=== PATIENT | female | born 1985 | race Hispanic/Latino ===

== ENCOUNTER 2018-06-21 11:25 | Inpatient (IN) | payer OTHER ==
[~2018-06-21] VITALS: Ht 167.6 cm; Wt 90.7 kg
--- NOTE | 2018-06-21 11:54 | ED PSYCHIATRIC COMPLAINT ---
History of Present Illness General Chief Complaint: Psychiatric Related Complaint Stated Complaint: ANXIETY Source: patient Exam Limitations: poor historian, physical impairment Vital Signs & Intake/Output Vital Signs & Intake/Output Vital Signs Date Time Temp Pulse Resp B/P B/P Pulse O2 O2 Flow FiO2 Mean Ox Delivery Rate 06/22 0814 98.1 74 18 111/67 99 Room Air 06/22 0635 98.3 76 18 100/48 98 Room Air 06/21 2152 98.0 83 16 96/56 98 Room Air 06/21 1819 98.7 89 16 104/50 98 Room Air 06/21 1448 98.8 69 16 122/70 98 Room Air 06/21 1409 Room Air ED Intake and Output 06/22 0000 06/21 1200 Intake Total Output Total Balance Patient 200 lb Weight Allergies Coded Allergies: No Known Allergies (06/21/18) Reconcile Medications No Known Home Medications Triage Note: 32B YEAR OLD FEMALE TO ER VIA MABULANCE FROM [facility] FOR ANXIETY ATTACK, PT STATES THAT SHE HAD SIMILAR EPISODE 1 YEAR AGO AND WAS SEEN AT [facility]. PT REQUESTING TO SPEAK WITH CRISIS, DENIES SI/HI/DRUGS/ETOG. PT STATES " IM JUST VERY OVERWHELMED Triage Nurses Notes Reviewed? yes Onset: Abrupt Duration: unknown duration Timing: unknown : No Patient currently breastfeeds: No HPI: 06/21/18 4 pm Patient with severe anxiety and depression. She does admit to occasional opiate use for her chronic back pain. She denies other complaints. She does smoke cigarettes. She is anxious and pacing and is acutely agitated in the ED (Kenton Callahan DO) Past History Travel History Traveled to [facility] past 21 day No Medical History Any Pertinent Medical History? 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 No (Kenton Callahan DO) Review of Systems Review of Systems Constitutional: Denies: fever. EENTM: Denies: visual changes. Respiratory: Denies: short of breath. Cardiovascular: Denies: chest pain. GI: Denies: abdominal pain. Genitourinary: Reports: no symptoms. Musculoskeletal: Reports: see HPI. Skin: Reports: no symptoms. Neurological/Psychological: Reports: depressed. Hematologic/Endocrine: Reports: no symptoms. Immunologic/Allergic: Reports: no symptoms. (Kenton Callahan DO) Physical Exam Physical Exam General Appearance: well developed/nourished, alert, awake, anxious, moderate distress Head: atraumatic, normal appearance Eyes: Bilateral: normal appearance, PERRL, EOMI. Ears, Nose, Throat: normal pharynx, normal ENT inspection Neck: normal inspection, supple, full range of motion Respiratory: normal breath sounds, chest non-tender, no respiratory distress Cardiovascular: regular rate/rhythm Gastrointestinal: non-tender Extremities: normal range of motion Neurological/Psychiatric: awake, agitated, alert, anxious Appearance/Memory/Insight: disheveled Behavoir/Eye Contact/Speech: compulsive, pacing Thoughts/Hallucinations: delusions SAD PERSONS SAD PERSONS Response Value Depression/Hopelessness? yes 2 Rational Thinking Loss? yes 2 Single//? yes 1 Social Support? has no support 1 Total 6 SAD PERSONS Done? yes (Kenton Callahan DO) Progress Differential Diagnosis: drug intoxication, drug overdose, drug withdrawal, depression Plan of Care: Orders Procedure Date/time Status Admit to inpatient psych 06/22 1155 Active Continuous Observation Monitor 06/21 1414 Active Current Medications Sig/May Start time Last Medication Dose Stop Time Status Admin Lorazepam 1 MG TID 06/21 2100 UNVr 06/22 (Ativan) 0830 Laboratory Tests 06/21/18 1228: Urine Opiates Screen < 100, Methadone Screen < 40, Barbiturate Screen < 60, Ur Phencyclidine Scrn < 6.00, Amphetamines Screen < 100, U Benzodiazepines Scrn > 800 H, Urine Cocaine Screen 64, Urine Cannabis Screen > 80.00 H, Urinalysis LIGHT H, Urine Color YEL, Urine Clarity CLEAR, Urine pH 6.0, Ur Specific [place] <= 1.005, Urine Protein NEG, Urine Ketones 15 H, Urine Nitrite NEG, Urine Bilirubin NEG, Urine Urobilinogen 0.2, Ur Leukocyte Esterase LARGE H, Ur Microscopic SEDIMENT EXAMINED, Urine RBC RARE, Urine WBC 5-10 H, Ur Epithelial Cells MANY H, Urine Bacteria RARE H, Urine Mucus RARE, Urine Hemoglobin TRACE- INTACT, Urine Glucose NEG, Urine Test NEGATIVE 06/21/18 1227: Anion Gap 9, Estimated GFR > 60, BUN/Creatinine Ratio 13.3, Glucose 108 H, Calcium 9.6, Total Bilirubin 0.9, AST 19, ALT 30, Alkaline Phosphatase 62, Total Protein 7.9, Albumin 4.5, Globulin 3.4, Albumin/Globulin Ratio 1.3, CBC w Diff NO MAN DIFF REQ, RBC 4.09 L, MCV 88.5, MCH 30.7, MCHC 34.7, RDW 14.2, MPV 9.6, Gran % 72.8, Lymphocytes % 21.1, Monocytes % 5.9, Eosinophils % 0, Basophils % 0.2, Absolute Granulocytes 7.9 H, Absolute Lymphocytes 2.3, Absolute Monocytes 0.6, Absolute Eosinophils 0, Absolute Basophils 0, Serum Alcohol < 10.0 (Kenton Callahan DO) Hand-Off Endorsed To: Kenton Ferguson MD Endorsed Time: 0700 Pending: consult (Александр Wang MD) Comments: 06/22/2018 7:17:40 AM patient signed out to me by Dr. 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 06/22/2018 11:59:01 AM patient will be admitted to inpatient psychiatry. (Phyllis WATSON,Kenton Wells) Departure Departure Disposition: STILL A PATIENT Condition: Stable Clinical Impression Primary Impression: Agitation Secondary Impressions: Depression Referrals: Keturah Wallis MD (PCP/Family) Departure Forms: Customer Survey General Discharge Information Prescriptions: Current Visit Scripts No Known Home Medications Comments The patient was given Ativan for the agitation. She is pending crisis evaluation. She will be signed out to Dr. Wang at 7 PM. (Kenton Callahan DO) No Known Home Medications Comments The patient was given Ativan for the agitation. She is pending crisis evaluation. She will be signed out to Dr. Wang at 7 PM. (Kenton Callahan DO)
[2018-06-21 12:49] LABS: ABSOLUTE BASOPHIL COUNT 0 /CUMM (0.0-0.2); ABSOLUTE EOSINOPHIL COUNT 0 /CUMM (0.0-0.7); ABSOLUTE GRANULOCYTE CT 7.9 /CUMM (1.4-6.5); ABSOLUTE LYMPH COUNT 2.3 /CUMM (1.2-3.4); ABSOLUTE MONOCYTE COUNT 0.6 /CUMM (0.10-0.60); BASOPHIL % 0.2 % (0.0-2.0); EOSINOPHIL % 0 % (0-5); GRANULOCYTE % 72.8 % (42.2-75.2); HEMATOCRIT 36.2 % (37-47); MEAN CORPUSCULAR HGB 30.7 PG (27.0-31.0); MEAN CORPUSCULAR HGB CONC 34.7 G/DL (33.0-37.0); MEAN CORPUSCULAR VOLUME 88.5 FL (81.0-99.0); MEAN PLATELET VOLUME 9.6 FL (7.4-10.4); PLATELET COUNT 346 /CUMM (130-400); RBC DISTRIBUTION WIDTH 14.2 % (11.5-14.5); RED BLOOD CELL CT 4.09 /CUMM (4.20-5.40); WHITE BLOOD CELL COUNT 10.8 /CUMM (4.8-10.8)
--- NOTE | 2018-06-21 15:59 | ED PSY CRISIS COLLATERAL NOTE ---
Collateral Note Collateral Note Family/Inform/Gaurav Contacts: Patient is a 32 year old unmarried female, who lives with her boyfriend whom she has known for more than 25 years. Male friend is Marc Recio who seems to be very concerned about patient's well -being, and has been a strong advocate for her, and has assisted with urging her to cooperate with staff. Patient has been working a pretty high stress job, with long hours for a number of years. She is inadequately compensated for this job per boyfriend and patient , and finances are tight. 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 Work has led to poor sleep and inadequate care of self, such as nutrition. Patient has had back problems as well, a herniated disc:L -4 and 5. Patient is opposed to any kind of medication, and has resisted taking any pain meds or gabepentin. Chayito has also not followed up with psychiatric treatment as recommended, following a trip to [facility] last year at approximately the same time of year. Presentation then was similar to today: extreme anxiety; confusion; difficulty with communication and organizing her thoughts; and appearing fearful and overwhelmed. Per boyfriend patient has serious mood swings and has numerous notebooks filled with thoughts which she calls "epiphanies" or "brain dumps". Patient did no want me to contact her mother, and patient said that she did not want to worry her, but wonders what "kind of genes do I have ?". Patient aware that has mental healthissues, but has resisted treatment or medication. Patient denies any drug or alcohol use ever. Marc, boyfriend, supports this statement. Boyfriend said that he would talk to her about being open to medication to enable patient to be properly evaluated. Patient was incoherent and extremely anxious when she was seen initially.
--- NOTE | 2018-06-21 16:45 | ED PSY CRISIS COLLATERAL NOTE ---
Collateral Note Collateral Note Family/Inform/Gaurav Contacts: Called friend, Belen, who essentially stated the same thing as her boyfriend, Marc. Patient has history of overworking and not getting sleep, along with having mood swings. Patient had an occurance that was similar to todays presentation one year ago. Patient has not followedup. Patient was sent to [facility] from [facility] aftere went there today, however they had no prior contact with patient, but sent here due to extreme anxiety.
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
[2018-06-22 14:52] VITALS: BP 106/51
[2018-06-22] MEDS ORDERED: NEURONTIN300 M1 PO (15:45)
[2018-06-22] MEDS ORDERED: MELOXICAM15 M1 PO (15:47)
[2018-06-22 20:04] VITALS: BP 133/65
[2018-06-23 07:49] VITALS: BP 108/53
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
--- NOTE | 2018-06-23 15:00 | CPS PROVIDER INIT ASMT PSYCH ---
Psychiatric Admission Foundry Worker Apprentice's Note Reviewed: Yes Patient Seen and Examined: Yes (Seen with medical student.) Identifying Information: 32 yo SHF admitted on 06/22/18 on a voluntary basis, referred by ER. Chief Complaint: Opal/paranoia. Reaction to Hospitalization: "It's relieving to take a break" but she is eager to get back to issues that need to be solved. History of Present Illness Onset of Illness: Similar episode 1 year ago, seen at [facility] ER, held overnight and released. Per crisis note, worsening anxiety x 2 months. Circumstances Leading to Admission: Having a lot of anxiety and panic attacks. Couldn't leave the house. Woke up Tuesday at 5 a.m. Couldn't even get dressed. Was anxious about talking with employer about her interest in a new position. Has financial problems and feels she isn't paid enough. Reports similar episode last year but it was worse that time. Chronic back pain from DDD. Reports she hasn't gone for MRI because owes $. Reports her thoughts have been scattered and all over the place. PI began on Tuesday. In ER, she found it to be loud with echos and she felt people were talking about her. Problem(s) Justifying Need for Admission: Opal. PI. Other HPI: Sleep: chronically inconsistent. Appetite: very low in the summer Weight: possibly a small weight gain related to travel. Energy: goes up and down. Gets some mood swings. Gets natural highs, "inspirations, enlightened," lasts for hours or days. Voodoo/spiritual but not hyper-shinto. Has lots of notebooks (?hypergraphia) of "brain dumps." Has had small spending sprees. Has debt but can't quantify. Denies promiscuity. Case and treatment plan discussed in team meeting. Staff reports that the patient denies SI. The day went well yesterday. Smiling this morning. Not paranoid now. Past Psychiatric History Past Diagnosis(es)- if any: Possibly bipolar disorder/depressed. Past Precipitating Factors- if any: Stress. - Include inpatient and outpatient treatment Treatment History: Seen at [facility] ER 08/06/17. Not in outpatient tx. History of Suicide Attempts or Gestures Denied. Substance Abuse History: Denies tobacco. Alcohol: a couple of glasses of wine on weekends and 1-2 weekdays/week. MJ "as needed," ~2-3x/day. No other drugs. Allergies: Coded Allergies: No Known Allergies (06/21/18) Home Med List: Gabapentin prn for back. Occ. nebulizer. - Include any medical condition(s) that may - impact the patient's recovery/remission Past Medical History: DDD + sciatica (left, now right also). Overweight. Past History Medical History Neurological: SCIATICA EENT: NONE Cardiovascular: NONE Respiratory: asthma Gastrointestinal: NONE Hepatic: NONE Renal: NONE Musculoskeletal: chronic back pain, disk herniation Psychiatric: anxiety, depression, psychosis, substance abuse Endocrine: NONE Blood Disorders: NONE Cancer(s): NONE SPORT INTERN/Reproductive: NONE History of MRSA: No History of VRE: No History of CDIFF: No Isolation History: Standard Surgical History Surgical History: none Psychiatric Family/Social Hx Family History Psychiatric Illness: Father: not formally diagnosed, no relationship with him. Substance Use: Father: alcoholic. Suicides: Denied. Social History Living Situation: Lives with of 3 years. Significant Relationships (family/friends): . Education: Associates degree from [employer]. 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 Legal: No arrests. Healthly Behaviors Screening Tobacco Screening Tobacco Use from ED Docu: Never used - If tobacco counseling indicated - the following topics are required. - #1 Recognizing dangerous situations. - #2 Coping Skills. - #3 Basic information about quitting. Status of Tobacco Cessation Counseling: Not Applicable Cessation Med Status Not Applicable Alcohol Screening - ETOH screen POS if BAL >=80 or Audit-C>= M4/F3 Audit-C Score from Diag Assess: 3 Blood Alcohol Level: Laboratory Tests 06/21 1227 Toxicology Serum Alcohol (<10 MG/DL) < 10.0 Alcohol Use Screening Results: Pos per Audit C &/or BAL - If ETOH counseling indicated - the following topics are required. - #1 Express concern about the patient's - drinking at unhealthy levels, include informing - of national norms for moderate drinking: - men <= 14 drinks/week, max 4 drinks/occasion - women <= 7 drinks/week, max 3 drinks/occasion - #2 Providing feedback, including linking alcohol to - negative physical effects (liver injury, hypertension) - negative emotional effects (relationship problems and - depression) - negative occupational consequences (reduced work - performance) - #3 Advising the patient to abstain from alcohol or - to drink below national norms for moderate drinking - (as listed above). Status of ETOH Use Counseling: #1, #2 AND #3 Completed. Metabolic Screening - Screen if on a Neuroleptic Medication - Metabolic screening should include: - Blood Pressure, BMI, Glucose or Hgb A1c, & a - Lipid profile from within the past 365 days. Metabolic Screening ([x]) Not Applicable, patient not on a neuroleptic. OR () Patient on a neuroleptic(s) . Enter below results for Hemoglobin A1C, and lipid panel if obtained during the last 365 days. BMI: 32.200 Blood Pressure: 108/53 Laboratory Results From [facility] (If applicable): Exam and Plan Mental Status Examination Ambulation Status: Gait WNL. Appearance: Mildly overweight HF dressed in sweatshirt and flannel PJ pants. Attitude towards examiner: Calm, polite and cooperative. Psychomotor activity: There is no psychomotor agitation/retardation. Behavior: Unremarkable. Quality of speech: Normal in volume, rate and tone. Affect: Calm and blunted to euthymic. Mood: Mood good. Sad maybe 1-2/10. Anxiety 0/10. Pain ~2/10, at left foot. Denies feeling hopeless, helpless, worthless or guilty. Suicidal Ideation: Denies active and passive SI. Homicidal Ideation: Denies HI. Hallucinations: Denies AH and VH. Paranoid/Delusional Material: Denies PI and magical witt. Difficulties with thought organization: None. Insight: Fair. Judgment: Was poor, now improved. Orientation: Ox3 except 06/23/10. Corrected year to 18 on prompting. Cognition: Grossly intact. Memory Function: Grossly intact. Estimate of intellectual functioning: Average. Assets/Strengths Patient Identified Assets/Strengths: Organizing. Doing puzzles. Translating Malay/Latvian. Impression/Plan Impression and Plan: The patient is here with recent opal and paranoia, now improving. Uses MJ and drinks some. - Include all active medical diagnosis that require tx DSM 5 Diagnosis(es): Bipolar I disorder, manic. Cannabis use disorder. R/o alcohol use disorder. - Initial Tx Plan for Active Psych & Medical Conditions Treatment Plan: The patient will be monitored on the unit for safety, opal and psychosis. Patient was advised to stop MJ and to reduce alcohol use to safer levels. Major risks/benefits of Tegretol were discussed with the patient, including risks of rash, drop in sodium and WBC and risk of rendering control pills, patches and injections ineffective for control. Patient was advised to avoid drugs, alcohol and while on Tegretol. Will start Tegretol 200 mg b.i.d. and check a level on Tuesday morning. Additional information is needed from collaterals, including BF. Anticipate once clinically stable, that the patient will be discharged to home and and be referred to an IOP. - Factors that would help patient function - in a less restrictive setting. Factors: Not manic. Not paranoid.
--- NOTE | 2018-06-23 16:29 | SOCIAL WORKER PROG NOTE PSYCH ---
Social Work Progress Note Progress Note I Chemo Campa ([facility] Digital Sales Assistant) met with Chayito today in her room. She was engaged and cooperative during the conversation. She mentioned that several stressors led her to be admitted to the inpatient psychiatric unit. She recently had neighbors move in which limited her privacy because the apartments are so close together. She feels overwhelmed by all the external stimuli at work and at home. She has attempted to use head headphones at work to help her concentrate but then other co workers told her that she was being antisocial.She desires to in the future move to [place] with her boyfriend to be with his daughter. She stated that she had trouble sleeping due to anxiety and sometimes shakes at night when anxious. 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 She described family members as being set in their ways and sometimes fight. She is open to having a family meeting with her boyfriend.Chayito expressed that her boyfriend is very supportive.
--- NOTE | 2018-06-23 17:52 | History & Physical ---
General Information and HPI MD Statement: I have seen and personally examined NARGIS LATIF and documented this H&P. The patient is a 32 year old F who presented with a patient stated chief complaint of "mood up-and-down and not sleeping well"]. Source of Information: patient, family, old records Exam Limitations: unable to give history History of Present Illness: 32-year-old female with history of anxiety, came to the emergency room via ambulance from [facility] with an anxious attack she said the same thing happened a year ago and was seen at . She came in with pressured speech , disorganized, tangential thoughts feels overwhelmed unable to function. She has been worse for the last week with increased anxiety and paranoia and racing thoughts. Allergies/Medications Allergies: Coded Allergies: No Known Allergies (06/21/18) Home Med list Gabapentin (Neurontin) 300 MG CAPSULE 1 CAP PO DAILY NEEDED PRN SCIATICA ( Reported) Meloxicam 15 MG TABLET 1 TAB PO DAILY PRN BACK PAIN (Reported) Compliance With Home Meds: UNKNOWN Past History Travel History Traveled to [facility] past 21 day No Medical History Neurological: SCIATICA EENT: NONE Cardiovascular: NONE Respiratory: asthma Gastrointestinal: NONE Hepatic: NONE Renal: NONE Musculoskeletal: chronic back pain, disk herniation Psychiatric: anxiety, depression, psychosis, substance abuse Endocrine: NONE Blood Disorders: NONE Cancer(s): NONE 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 Exam & Diagnostic Data Last 24 Hrs of Vital Signs/I&O Vital Signs Date Time Temp Pulse Resp B/P B/P Pulse O2 O2 Flow FiO2 Mean Ox Delivery Rate 06/23 749 97.9 75 108/53 06/22 2004 98.5 83 133/65 Intake & Output 06/23 1600 06/23 0800 06/23 0000 Intake Total Output Total Balance Patient 200 lb Weight Physical Exam General Appearance Alert, Oriented X3, Cooperative, No Acute Distress Skin No Rashes HEENT PERRLA, EOMI, Mucous Membr. moist/pink Neck Supple, No JVD, No thryomegaly, +2 Carotid Pulse wo Bruit, No LAD Lymphatic Axillary nl, Cervical nl Cardiovascular Regular Rate, No Murmurs Lungs Clear to Auscultation, Normal Air Movement Abdomen Soft, No Tenderness, No Hepatospenomegaly Neurological Exam Findings: Normal Gait, Normal Speech, Strength at 5/5 X4 Ext, Normal Tone, Sensation Intact, Cranial Nerves 3-12 NL, Reflexes 2+ Cranial Nerves II through XII: intact Extremities No Edema, Normal Pulses Vascular Normal Pulses, Pulses Symmetrical Last 24 Hrs of Labs/[place]: Laboratory Tests 06/21/18 1228: Urine Opiates Screen < 100, Methadone Screen < 40, Barbiturate Screen < 60, Ur Phencyclidine Scrn < 6.00, Amphetamines Screen < 100, U Benzodiazepines Scrn > 800 H, Urine Cocaine Screen 64, Urine Cannabis Screen > 80.00 H, Urinalysis LIGHT H, Urine Color YEL, Urine Clarity CLEAR, Urine pH 6.0, Ur Specific [place] <= 1.005, Urine Protein NEG, Urine Ketones 15 H, Urine Nitrite NEG, Urine Bilirubin NEG, Urine Urobilinogen 0.2, Ur Leukocyte Esterase LARGE H, Ur Microscopic SEDIMENT EXAMINED, Urine RBC RARE, Urine WBC 5-10 H, Ur Epithelial Cells MANY H, Urine Bacteria RARE H, Urine Mucus RARE, Urine Hemoglobin TRACE- INTACT, Urine Glucose NEG, Urine Test NEGATIVE 06/21/18 1227: Anion Gap 9, Estimated GFR > 60, BUN/Creatinine Ratio 13.3, Glucose 108 H, Hemoglobin A1c 5.4, Calcium 9.6, Total Bilirubin 0.9, AST 19, ALT 30, Alkaline Phosphatase 62, Total Protein 7.9, Albumin 4.5, Globulin 3.4, Albumin/Globulin Ratio 1.3, Triglycerides 62, Cholesterol 191, LDL Cholesterol, Calc 133 H, HDL Cholesterol 46, Cholesterol/HDL Ratio 4, TSH 0.957, CBC w Diff NO MAN DIFF REQ, RBC 4.09 L, MCV 88.5, MCH 30.7, MCHC 34.7, RDW 14.2, MPV 9.6, Gran % 72.8, Lymphocytes % 21.1, Monocytes % 5.9, Eosinophils % 0, Basophils % 0.2, Absolute Granulocytes 7.9 H, Absolute Lymphocytes 2.3, Absolute Monocytes 0.6, Absolute Eosinophils 0, Absolute Basophils 0, Serum Alcohol < 10.0 Assessment/Plan As Ranked By This Provider Problem List: 1. Depression 2. Agitation Miscellaneous Miscellaneous Documentation Attending Case Discussed With: Vincent Davies MD Primary Care Physician: Keturah Wallis MD Patient sees these Specialists psych. Level of Patient Care: [facility] Consults Needed: Consulting Specialty: Psychiatry Consulting Physician: Dr. Davies Reason for Consult: anxiety/depressin. Attending MD Review Statement Attending Statement Attending MD Statement: examined this patient
[2018-06-23 20:35] VITALS: BP 120/55
[2018-06-23 20:40] VITALS: BP 120/55
[2018-06-24 07:51] VITALS: BP 141/63
[2018-06-24 08:01] VITALS: BP 141/63
[2018-06-24 12:06] VITALS: BP 105/70
--- NOTE | 2018-06-24 16:57 | CP SOUTH PROGRESS NOTE PSYCH ---
Psych (Inpt) Progress Note Progress Note Include the following elements, when applicable: Involvement in the active treatment of the patient with behavioral observations of the patient and the patient's response to the treatment. Review of the ongoing treatment process in the context of the treatment plan. Indication of how multi-disciplinary staff members are carrying out the treatment plan. Plans for future interventions and recommendations for revision of the treatment plan. Liaison with other physicians/providers. Progress Note: [facility]. Chayito has been stable. Cooperative with care. Visible in the unit. Complaining of increased menstrual cramps. Upon assessment pt presents appropiate pleasant. Discussing strategies to maintain emotional stability. Sleep and appetite are regular. Tolerating medication regimen well. SOme undersatanding of reasons for admit.; mentions she is not sure about taking medications after she leaves the hospital. Mimimizing use of THC. MSE [place] female. Fairly groomed. Cooperative. Good eye contact. Bright affect. No SI/HI. NO AVH. NO delusions. organized and linear. Cog AAOx3 I/J LImited/ Fair. A/P [place] female. Bipolar Dx NOS. THC Use Dx Improving. Will continue same medication regimen. LImited insight into reasons for admit/ need to continue MH tx.
[2018-06-24 20:06] VITALS: BP 119/66
[2018-06-24 20:08] VITALS: BP 119/66
[2018-06-25 07:50] VITALS: BP 110/65
[2018-06-25 08:06] VITALS: BP 110/65
[2018-06-25 12:20] VITALS: BP 137/65
--- NOTE | 2018-06-25 14:04 | CP SOUTH PROGRESS NOTE PSYCH ---
Psych (Inpt) Progress Note Progress Note Include the following elements, when applicable: Involvement in the active treatment of the patient with behavioral observations of the patient and the patient's response to the treatment. Review of the ongoing treatment process in the context of the treatment plan. Indication of how multi-disciplinary staff members are carrying out the treatment plan. Plans for future interventions and recommendations for revision of the treatment plan. Liaison with other physicians/providers. Progress Note: Chayito this AM is feeling more emotional. Mentions she had a nice meeting with clipper machine yesterday as well with family. She is thinking of all the changes she wants to implement in her life going forward. Sleep is fragmented due to back pain. Anxiety is better as well as racing thougths. Faur appetite. Interacting with peers in unit. MSE Young female fairly groomed. Cooperative. Tearful when discussing her struggles. perseverative about her " coping strategies. " No SI/HI No AVH circumsntantial and overinclusive. Cog AAox3 I/J Fair. A/P 32 y/o Female. Bipolar NOS. Sligthly improving still perseverative and obsessive. Monitor response to mood stabilizer. COntinue same tx plan for now.
[2018-06-25 16:51] VITALS: BP 138/78
[2018-06-25 20:01] VITALS: BP 133/64
[2018-06-25 20:02] VITALS: BP 133/64
[2018-06-26 08:10] VITALS: BP 97/57
[2018-06-26 08:12] VITALS: BP 97/57
[2018-06-26 12:17] VITALS: BP 114/68
--- NOTE | 2018-06-26 12:55 | SOCIAL WORKER PROG NOTE PSYCH ---
Social Work Progress Note Progress Note Chayito approached me late morning. She was very tearful/ emotional, tangential , and hyperverbal in the 45 minutes that we spent together. She was crying about how she has been there for everyone and thinks that she is responsible for everything. The stress of all of it has been building to the point she decided to come in and do something about it. She is admitting she needs help and stated she can't do this alone anymore. She stated she hasn't had an outlet for years. Talks about an abundance of financial stress. She reports being too overwhelmed to function at home and that's what caused her to come in. She has no hx of tx. She advocated to possibly leave today. I told her that we are looking at discharge for tomorrow and that we would like to have her boyfriend in for a family meeting. She feels he is extremely supportive. Tried to talk with her about aftercare plannning and recommended IOP after discharge, but I didn't seem to get a commitment from her. She doesn't stay on topic and needs alot of redirection. Chayito is ambivalent about medication. Encouraged her to remain on meds suggesting that she may not need it forever, but to get through this current tx episode. She is open to looking into alternative coping skills. Suggested aromatherapy, yoga, meditation. Called Marc (boyfriend) to discuss family meeting for tomorrow. Apparently he was on his way here and thought she would be leaving today. He questioned why she was staying? I told him it was not the team's recommendation for her to leave today. He seemed to think that the weekend staff gave him the impression that she would leave today. He seemed upset. We planned a time to meet tomorrow at 10:30a. Mother than called the unit asking to speak with the doctor or hospice social worker. I told her I needed a release. She was apparently in the Lobby of the hospital wanting to come down. I informed Chayito that her Mother was here, but I could not do a family meeting right now. I asked her to call her Mother and explain since I had no release signed. She got on the phone and spoke in Armenian to her. She was tearful talking to her and afterwards stated she didn't want her Mom to come and see her like this anyway. She said she would rather talk to her Mom when she leaves here. She had a difficult time calming herself down. Encouraged deep breaths and to splash some water on her face.
[2018-06-26 16:11] VITALS: BP 117/62
--- NOTE | 2018-06-26 16:14 | CP SOUTH PROGRESS NOTE PSYCH ---
Psych (Inpt) Progress Note Progress Note Include the following elements, when applicable: Involvement in the active treatment of the patient with behavioral observations of the patient and the patient's response to the treatment. Review of the ongoing treatment process in the context of the treatment plan. Indication of how multi-disciplinary staff members are carrying out the treatment plan. Plans for future interventions and recommendations for revision of the treatment plan. Liaison with other physicians/providers. Progress Note: Dr. Wells's notes reviewed. Case and treatment plan discussed in team meeting. Tegretol level is therapeutic at 8.0. Staff reports patient is denying suicidal ideation. Appearing bright and pleasant but also was noted to cry a lot. Patient seen at 10:14 AM. She was in group prior to meeting with me in office. Reports doing well. States she is feeling ready to go. Reports that she got this journey started and she is facing her fears. Affect is calm and blunted. Reports mood is good, a little nervous. Rates sad mood about 1-2/10 and anxiety 1/10. Denies feeling hopeless, helpless, worthless or guilty. Denies active and passive suicidal ideation. Denies homicidal ideation. Denies auditory and visual hallucinations. Reports paranoia has cleared. She found it helpful talking to the health care administrator, the moonlighting psychiatrist and sleeping. No longer experiencing ideas of reference from the TV. Sleep: Reports back pain interfered with sleep and she tossed and turned and her bed is uncomfortable. Reports appetite is a lot better. Energy is good. Tolerating Tegretol well, without complaint. IMPRESSION: Slow progress. Continue present treatment plan. We will try to arrange a couple's meeting with boyfriend. Anticipate likely discharge tomorrow with referral to [facility].
[2018-06-26 20:04] VITALS: BP 112/77
[2018-06-26 22:34] VITALS: BP 112/77
[2018-06-27 07:55] VITALS: BP 105/58
[2018-06-27 08:17] VITALS: BP 105/58
[2018-06-27] MEDS ORDERED: CARBAMAZEPINE200 M3 PO (10:16)
--- NOTE | 2018-06-27 10:21 | Patient Discharge Instructions ---
Psych Discharge Inst General Discharge Information Reason for Admission: Panic, jimmie, paranoia. Psy Discharge Primary Diag+ Bipolar I disorder, manic Psy Discharge Secondary Diag+ Cannabis use disorder R/o alcohol use disorder Degenerative disc disease w/sciatica Summary Tests/Major Procedures Lab ALT 30 U/L 06/21/18 1227 AST 19 U/L 06/21/18 1227 BUN 8 mg/dL 06/21/18 1227 Calcium 9.6 mg/dL 06/21/18 1227 Carbon Dioxide 20 mmol/L L 06/21/18 1227 Chloride 107 mmol/L 06/21/18 1227 Cholesterol 191 MG/DL 06/21/18 1227 Cholesterol/HDL Ratio 4 % 06/21/18 1227 Creatinine 0.6 mg/dL 06/21/18 1227 Estimated GFR > 60 ml/min 06/21/18 1227 Glucose 108 mg/dL H 06/21/18 1227 HDL Cholesterol 46 mg/dL 06/21/18 1227 Hemoglobin A1c 5.4 % 06/21/18 1227 LDL Cholesterol, Calc 133 mg/dL H 06/21/18 1227 Potassium 4.0 mmol/L 06/21/18 1227 Sodium 137 mmol/L 06/21/18 1227 TSH 0.957 uIU/mL 06/21/18 1227 Triglycerides 62 mg/dL 06/21/18 1227 Absolute Granulocytes 7.9 /CUMM H 06/21/18 1227 Hct 36.2 % L 06/21/18 1227 Hgb 12.6 G/DL 06/21/18 1227 Plt Count 346 /CUMM 06/21/18 1227 RBC 4.09 /CUMM L 06/21/18 1227 WBC 10.8 /CUMM 06/21/18 1227 Carbamazepine 8.0 ug/mL 06/26/18 0645 Serum Alcohol < 10.0 MG/DL 06/21/18 1227 U Benzodiazepines Scrn > 800 NG/ML H 06/21/18 1228 Urine Cannabis Screen > 80.00 NG/ML H 06/21/18 1228 Ur Epithelial Cells MOD H 06/23/18 1841 Ur Leukocyte Esterase SMALL H 06/23/18 1841 Urinalysis LIGHT H 06/23/18 1841 Urine Bacteria FEW H 06/23/18 1841 Urine Clarity HAZY H 06/23/18 1841 Urine Hemoglobin MOD H 06/23/18 1841 Urine Mucus MOD H 06/23/18 1841 Urine RBC 1-3 /HPF 06/23/18 1841 Urine WBC 1-3 /HPF H 06/23/18 1841 EKG 06/23/18 showed sinus rhythm @ 72, no previous tracing, normal ECG, QT 384, QTc 421. Studies Pending at DC: None. Patient Instructions Contact Information Your Psychiatrist on [facility] was Vincent Davies MD * If you are experiencing an emergency related to this hospitalization, please call [phone] to contact the treating psychiatrist or the psychiatrist-on- call. * To Request a copy of your medical records, please contact the Medical Records Department at [phone]. * To request results of studies pending at the time of discharge, please call [phone]. * Continue your Medications until directed to stop by your Healthcare provider. General Medication Information Please continue to take your new medications and your continued home medications , unless otherwise indicated on your discharge medication list, or unless directed by your MD or JOB PRINTER APPRENTICE to stop them. Special Instructions Diet Regular Activity Normal Other Inst/Recommendations Stay away from drugs and alcohol. Please see PCP for high LDL. - Tobacco Use Treatment Offered Post DC Medications Offered: Not Applicable Post DC Tobacco Treatment Plan: Not Applicable - EtOH/Drug Use D/O Treatment Offered Post DC Medications Offered: Med Not Indicated for D/O Post DC EtOH/SubAbuse TX Plan: Luis SubAbuse/Dual IOP (TBA if patient agrees) Program Appt Date: 06/28/18 Program Appt Time: 0900 (Needs confirmation.) Metabolic Screening ([x]) Not Applicable, patient not on a neuroleptic. OR () Patient on a neuroleptic(s) . Enter below results for Hemoglobin A1C, and lipid panel if obtained during the last 365 days. BMI: 32.200 Blood Pressure: 105/58 Laboratory Results From [facility] (If applicable): Advance Directives Does the Patient have Medical Advance Directives No/Refused further info Does Pt have Psychiatric Advance Directives? No/Refused further info Does Patient have a Designated Surrogate Decision Maker: No Information About Psychiatric Advance Directives Provided? Refused Discharge Plan Post Hospital Treatment Plan: Return to home and boyfriend. IOP strongly advised, TBA.
--- NOTE | 2018-06-27 11:39 | SOCIAL WORKER PROG NOTE PSYCH ---
Social Work Progress Note Progress Note Talked with Chayito briefly about having to have a follow up d/c plan before leaving today. Recommended IOP. She said she had alot of questions. I told her we would discuss those during the family meeting today. Marc (Boyfriend) came in at 10:30am. Dr. Davies was present for part of this meeting. He reviewed her diagnosis and symptoms and which medication she is currently being treated with. Marc said he has seen an improvement in symptoms, but seemed to think she needs to work on getting back to baseline. He said the last episode she had last year, they did things her way and this time things will be different. He is ready to take her home after the meeting today and reported the longer she stays in the hospital the more stressful things become financially. I had to direct Chayito into making a decision regarding aftercare. She was a little overwhelmed and stated she really needs to talk to her employer. Suggested she speak with HR and possibly take FMLA. Boyfriend seemed supportive of that idea, despite their financial limitations. Chayito continues to be emotional/ tearful at times. Remains a little disorganized/ tangential. Scheduled an IOP intake for Cahyito at [facility] for 06/28 11:30am. Encouraged her to refrain from smoking cannabis so she can be in the mental health track. She was appreciative of the care she got while being here.
--- NOTE | 2018-06-27 11:47 | SOCIAL WORKER PROG NOTE PSYCH ---
Social Work Progress Note Faxed Referral(s) Referred To: [facility] Transition of Care Documents sent: Health Summary, W10 Faxed to: [facility] Fax #: [phone] Faxed by: Deborah Carvalho Date faxed: 06/27/18 Time Faxed: [phone]
--- NOTE | 2018-06-27 15:54 | CP SOUTH PROGRESS NOTE PSYCH ---
Psych (Inpt) Progress Note Progress Note Include the following elements, when applicable: Involvement in the active treatment of the patient with behavioral observations of the patient and the patient's response to the treatment. Review of the ongoing treatment process in the context of the treatment plan. Indication of how multi-disciplinary staff members are carrying out the treatment plan. Plans for future interventions and recommendations for revision of the treatment plan. Liaison with other physicians/providers. Progress Note: Case and treatment plan discussed in team meeting. Staff reports that the patient is denying suicidal ideation. Did not attend many groups yesterday. Couple's meeting was planned for 10:30 AM. Patient seen at 10:04 AM with medical student. Patient feels good, a little nervous, but good. Major risks and benefits of Tegretol were reviewed again with the patient. Patient reports her racing thoughts are better. Reports she is better able to focus. Reports sleep has gotten better. Reports ongoing back pain and sciatica. Affect is calm and blunted. Mood is a little nervous. Rates anxiety probably like a 2/10. Rates sad mood 0/10. Denies euphoria. Denies feeling hopeless, helpless, worthless or guilty. Denies active and passive suicidal ideation. Denies homicidal ideation. Denies auditory and visual hallucinations and paranoid ideation. Denies ideas of reference. Denies magical witt. Reports sleep has improved but she had nocturia 1. Appetite is okay, up and down a little. Reports she eats less when she is nervous. Energy is good right now. Tolerating medications well, without complaint. Patient was advised to attend [facility]. Feels ready and safe for discharge. I attended couple's meeting with patient, boyfriend, social media campaign manager and medical student. Patient's and boyfriend's questions were addressed. IMPRESSION: Condition improved. Okay for discharge today to home and boyfriend with referral to [facility].
--- NOTE | 2018-06-27 15:59 | DISCHARGE SUMMARY REPORT-PSYCH ---
Visit Information Visit Dates/Diagnosis' Admission Date: 06/22/18 Discharge Date: 06/27/18 Reason for Admission: Panic, jimmie, paranoia. Psy Discharge Primary Diag: Bipolar I disorder, manic Psy Discharge Secondary Diag: Cannabis use disorder R/o alcohol use disorder Degenerative disc disease w/sciatica Hospital Course Significant Lab Findings: Lab ALT 30 U/L 06/21/18 1227 AST 19 U/L 06/21/18 1227 BUN 8 mg/dL 06/21/18 1227 Calcium 9.6 mg/dL 06/21/18 1227 Carbon Dioxide 20 mmol/L L 06/21/18 1227 Chloride 107 mmol/L 06/21/18 1227 Cholesterol 191 MG/DL 06/21/18 1227 Cholesterol/HDL Ratio 4 % 06/21/18 1227 Creatinine 0.6 mg/dL 06/21/18 1227 Estimated GFR > 60 ml/min 06/21/18 1227 Glucose 108 mg/dL H 06/21/18 1227 HDL Cholesterol 46 mg/dL 06/21/18 1227 Hemoglobin A1c 5.4 % 06/21/18 1227 LDL Cholesterol, Calc 133 mg/dL H 06/21/18 1227 Potassium 4.0 mmol/L 06/21/18 1227 Sodium 137 mmol/L 06/21/18 1227 TSH 0.957 uIU/mL 06/21/18 1227 Triglycerides 62 mg/dL 06/21/18 1227 Absolute Granulocytes 7.9 /CUMM H 06/21/18 1227 Hct 36.2 % L 06/21/18 1227 Hgb 12.6 G/DL 06/21/18 1227 Plt Count 346 /CUMM 06/21/18 1227 RBC 4.09 /CUMM L 06/21/18 1227 WBC 10.8 /CUMM 06/21/18 1227 Carbamazepine 8.0 ug/mL 06/26/18 0645 Serum Alcohol < 10.0 MG/DL 06/21/18 1227 U Benzodiazepines Scrn > 800 NG/ML H 06/21/18 1228 Urine Cannabis Screen > 80.00 NG/ML H 06/21/18 1228 Ur Epithelial Cells MOD H 06/23/18 1841 Ur Leukocyte Esterase SMALL H 06/23/18 1841 Urinalysis LIGHT H 06/23/18 1841 Urine Bacteria FEW H 06/23/18 1841 Urine Clarity HAZY H 06/23/18 1841 Urine Hemoglobin MOD H 06/23/18 1841 Urine Mucus MOD H 06/23/18 1841 Urine RBC 1-3 /HPF 06/23/18 184 Urine WBC 1-3 /HPF H 06/23/181840 EKG 06/23/18 showed sinus rhythm @ 72, no previous tracing, normal ECG, QT 384, QTc 421. Course Complications: None. Consultations: The patient was seen by Dr. Reymundo Butcher for admission H&P. Please refer to his note for additional information. Allergies: Coded Allergies: No Known Allergies (06/21/18) Hospital Course/[place] Response: The patient was monitored on the unit for safety, jimmie and psychosis. She participated in multi-modal treatments on the unit. She agreed to Tegretol for bipolar disorder and is reponding well to this medication. Progress note from date of discharge, 06/27/18: "Case and treatment plan discussed in team meeting. Staff reports that the patient is denying suicidal ideation. Did not attend many groups yesterday. Couple's meeting was planned for 10:30 AM. Patient seen at 10:04 AM with medical student. Patient feels good, a little nervous, but good. Major risks and benefits of Tegretol were reviewed again with the patient. Patient reports her racing thoughts are better. Reports she is better able to focus. Reports sleep has gotten better. Reports ongoing back pain and sciatica. Affect is calm and blunted. Mood is a little nervous. Rates anxiety probably like a 2/10. Rates sad mood 0/10. Denies euphoria. Denies feeling hopeless, helpless, worthless or guilty. Denies active and passive suicidal ideation. Denies homicidal ideation. Denies auditory and visual hallucinations and paranoid ideation. Denies ideas of reference. Denies magical witt. Reports sleep has improved but she had nocturia 1. Appetite is okay, up and down a little. Reports she eats less when she is nervous. Energy is good right now. Tolerating medications well, without complaint. Patient was advised to attend [facility]. Feels ready and safe for discharge. I attended couple's meeting with patient, boyfriend, social work administrator and medical student. Patient's and boyfriend's questions were addressed. IMPRESSION: Condition improved. Okay for discharge today to home and boyfriend with referral to IOP." Discharge HBIPS - Tobacco Use Treatment Offered Post DC Medications Offered: Not Applicable Post DC Tobacco Treatment Plan: Not Applicable - EtOH/Drug Use D/O Treatment Offered Post DC Medications Offered: Med Not Indicated for D/O Post DC EtOH/SubAbuse [place] Plan: [facility] SubAbuse/Dual IOP Program Appt Date: 06/28/18 Program Appt Time: 113 Metabolic Screening - Screen if on a Neuroleptic Medication - Metabolic screening should include: - Blood Pressure, BMI, Glucose or Hgb A1c, & a - Lipid profile from within the past 365 days. Metabolic Screening ([x]) Not Applicable, patient not on a neuroleptic. OR () Patient on a neuroleptic(s) . Enter below results for Hemoglobin A1C, and lipid panel if obtained during the last 365 days. BMI: 32.200 Blood Pressure: 105/58 Laboratory Results From [facility] EHR (If applicable): Discharge Instructions General Discharge Information Multiple Neuroleptics: ([x]) Not Applicable OR Document below three failed attempts at monotherapy, or a plan to taper to monotherapy, or augmentation of Clozapine. () Discharge Diet Regular Discharge Activity Normal DC Disposition: Returning to home and boyfriend. Referrals Ordered Referrals INTENSIVE OUTPT PSY-SUBSTANCE 06/28/18 [address] [id number] [facility] Intensive Outpatient for mental health and substance Intake 06/28/18 11:30am [address] [id number] Prescriptions Continue taking these medications: Gabapentin (Neurontin) 300 MG CAPSULE 1 Capsule ORAL DAILY NEEDED as needed for SCIATICA Comments: Last Taken:NOT GIVEN IN THE HOSPITAL Time: Meloxicam (Meloxicam) 15 MG TABLET 1 Tablet ORAL DAILY as needed for BACK PAIN Comments: Last Taken:NOT GIVEN IN THE HOSPITAL Time: Start taking the following new medications: Carbamazepine (Carbamazepine) 200 MG TABLET 1 Tablet ORAL TWICE DAILY Qty = 28 No Refills Comments: Last Taken:06/27/18 Time:9:30AM Other Inst/Recommendations Stay away from drugs and alcohol. Please see PCP for high LDL. Studies Pending at Discharge None. Copies To: Intensive Outpt Psy-Substance
== END 2018-06-27 11:30 | DRG 885 ==
LOC: ERH 11:25 → ERHI 06-22 11:55 → CP SOUTH 06-22 11:55 → ENTRNSPT 06-22 14:03 → EDTRNSPT 06-22 14:07 → EDTRNSPTSTS 06-22 14:07 → CMPTRNSPT 06-22 14:13 → CP SOUTH 06-22 14:15
PROVIDERS: Physician Assistant Medical
DX: F30.9 Manic episode, unspecified (principal); F12.90 Cannabis use, unspecified, uncomplicated; M47.9 Spondylosis, unspecified; M54.30 Sciatica, unspecified side; F41.9 Anxiety disorder, unspecified
CPT/HCPCS: 36415; 80307; 81001; 81025; 93005; 93010; G0463; G0480; J0515; J1630